=== PATIENT | female | born 1995 | race Caucasian/White ===

== ENCOUNTER → 2018-04-21 | Outpatient (CLI) | payer BC ==
--- NOTE | 2018-04-23 16:52 | EEG ---
ELECTROENCEPHALOGRAM REPORT PROCEDURE: Video-assisted nystagmogram. VNG INDICATIONS: [id number]-old female with dizziness, including vertigo and lightheadedness, that began one month ago and occurring about once a week, lasting for about 60 seconds at a time. No difficulty with hearing, but buzzing of a steady nature in the right ear. Lightheadedness associated with the dizziness. VNG FINDINGS: SACCADES: Saccades shows intact peak velocities, accuracies and latencies. GAZE WITH FIXATION: Gaze with fixation shows no nystagmus in any of the directions of gaze, including centrally with vision denied. TRACKING: Tracking shows no significant breakups. OKN TEST: Optokinetic nystagmus shows no asymmetry. STATIC POSITION TESTING: Static position testing in 6 different positions with eyes open and then with vision denied shows no nystagmus. HAIDER-HALLPIKE TEST: Haider-Hallpike maneuvers are negative bilaterally. CALORIC TESTING: Caloric testing shows a 3% unilateral caloric weakness in the left ear, which is within normal limits. IMPRESSION: Unremarkable VNG study. MMODL / IJN: [id number] /
== END | disposition home or self-care (01) ==
LOC: NEUROMAIN 06:34
PROVIDERS: ATTEND Family Medicine
DX: R42 Dizziness and giddiness (principal)
CPT/HCPCS: 92537; 92540